=== PATIENT | male | born 1950 | race African-American/Black ===

== ENCOUNTER 2024-08-25 10:45 | Inpatient (IN) | payer MEDICAID ==
[2024-08-25] VITALS (44 sets, daily range): BP systolic 88–154; BP diastolic 45–80; PULSE 42–59; RESP 9–17; TEMP 36.44736–36.5292; O2SAT 95–100
[~2024-08-25] VITALS: Ht 177.8 cm; Wt 81.2 kg
[2024-08-25] MEDS: IOHEXOL-350 100 ML BOTTLE ONE (11:35)
[2024-08-25] MEDS: SODIUM CHLORIDE 0.9% 1,000 ML IV ONE (11:35)
[2024-08-25 11:43] LABS: BASOPHILS % 0.2 % (0.0-2.0); EOSINOPHILS % 2.8 % (0.0-5.0); HEMATOCRIT. 37.9 % (42.0-52.0); LYMPHOCYTES % 24.6 % (20.0-50.0); MEAN CORPUSCULAR HEMOGLOBIN 30.5 pg (28.0-32.0); MEAN CORPUSCULAR HGB CONC 34.3 g/dL (31.0-37.0); MEAN CORPUSCULAR VOLUME 88.9 fL (80.0-94.0); MEAN PLATELET VOLUME 7.9 fl (7.4-10.4); MONOCYTES % 7.5 % (2.0-8.0); NEUTROPHILS % 64.9 % (40.0-76.0); PLATELET 152 x1000/uL (130-400); RED BLOOD CELL COUNT 4.27 mill/uL (4.7-6.1); RED CELL DISTRIBUTION WIDTH 15.1 % (11.6-14.6); WHITE BLOOD COUNT 4.7 x1000/uL (4.5-11.0)
[2024-08-25] MEDS: DEXAMETHASONE 10 MG/ML VIAL IV ONE (11:43)
[2024-08-25] MEDS: LEVETIRACETAM 500MG PREMIX 100 ML IV ONE (11:43)
[2024-08-25 11:51] LABS: CHLORIDE 106 mEq/L (98-107); POTASSIUM 3.2 mEq/L (3.5-5.1); SODIUM 139 mEq/L (136-145)
[2024-08-25 11:52] LABS: CALCIUM 8.6 mg/dL (8.7-10.4); CARBON DIOXIDE 29 mEq/L (21-32)
[2024-08-25 11:56] LABS: INR 1.1; PROTHROMBIN TIME 11.8 sec (9.6-11.0)
[2024-08-25 11:57] LABS: CREATININE 0.7 mg/dL (0.6-1.3); GLUCOSE 99 mg/dL (70-105)
[2024-08-25] MEDS: MANNITOL 20% 250 ML IV ONE (11:57)
[2024-08-25 11:58] LABS: TROPONIN I HIGH SENSITIVITY 4 ng/L (3.0-53); UREA NITROGEN BLOOD 11 mg/dL (9-23)
[2024-08-25 11:59] LABS: ALANINE AMINOTRANSFERASE 20 IU/L (10-49); ALBUMIN 3.6 g/dL (3.2-4.8); ASPARTATE AMINOTRANSFERASE 21 IU/L (<34); BILIRUBIN DIRECT 0.5 mg/dL (<=3.0)
[2024-08-25 12:00] LABS: BILIRUBIN TOTAL 1.5 mg/dL (0.1-1.0); PROTEIN TOTAL 6.2 g/dL (6.0-8.3)
[2024-08-25] MEDS ORDERED: NICARDIPINE 100 MG in SODIUM CHLORIDE 0.9% 60 ML IV PRN (12:00)
[2024-08-25 12:03] LABS: ETHANOL BLOOD < 10 mg/dL (<10)
[2024-08-25] MEDS ORDERED: SODIUM CHLORIDE 0.9% IV NR (13:00)
[2024-08-25] MEDS ORDERED: DESMOPRESSIN ACETATE IV NR (13:00)
[2024-08-25] MEDS ORDERED: THROMBIN (BOVINE) 5000 UNITS/VIAL TOP ONE (13:03)
[2024-08-25] MEDS ORDERED: BACITRACIN 14GM TUBE TOP ONE (13:04)
[2024-08-25] MEDS ORDERED: GENTAMICIN SULF 40MG/ML 2ML VIAL ONE (13:04)
[2024-08-25] MEDS ORDERED: LIDOCAINE HCL/EPINEPHRINE 1%-EPI 1:100,000 20ML VIAL ONE (13:04)
[2024-08-25 14:00] LABS: CLARITY URINE CLEAR (CLEAR); COLOR URINE YELLOW (YELLOW); GLUCOSE URINE NEGATIVE (NEGATIVE); KETONES URINE NEGATIVE (NEGATIVE); LEUKOCYTE ESTERASE URINE NEGATIVE (NEGATIVE); NITRITE URINE NEGATIVE (NEGATIVE); OCCULT BLOOD URINE NEGATIVE (NEGATIVE); PROTEIN URINE NEGATIVE (NEGATIVE); SPECIFIC GRAVITY URINE 1.043 (1.005-1.030)
[2024-08-25 14:08] LABS: *AMPHETAMINES SCREEN URINE NEGATIVE (NEGATIVE); *BARBITURATES SCREEN URINE NEGATIVE (NEGATIVE); *BENZODIAZEPINES SCREEN URINE NEGATIVE (NEGATIVE); *COCAINE SCREEN URINE NEGATIVE (NEGATIVE); CANNABINOID URINE SCREEN NEGATIVE (NEGATIVE); ECSTASY MDMA SCREEN URINE NEGATIVE (NEGATIVE); METHADONE URINE SCREEN NEGATIVE (NEGATIVE); OPIATES URINE SCREEN NEGATIVE (NEGATIVE); PHENCYCLIDINE URINE SCREEN NEGATIVE (NEGATIVE)
[2024-08-25 15:04] LABS: TROPONIN I HIGH SENSITIVITY 4 ng/L (3.0-53)
[2024-08-25] MEDS: NICARDIPINE 100 MG in SODIUM CHLORIDE 0.9% 60 ML IV PRN (15:20)
[2024-08-25] MEDS ORDERED: DEXTROSE 50% WATER 50ML SYRINGE IV PRN (19:30)
[2024-08-25] MEDS: DEXT 5%/LACTATED RINGERS 1,000 ML IV SCH (19:36)
[2024-08-25] MEDS: LEVETIRACETAM 500MG PREMIX 100 ML IV SCH (20:53)
[2024-08-25] MEDS ORDERED: LEVETIRACETAM 500MG in NACL 100ML PREMIX IV SCH (21:00)
[2024-08-25] MEDS: INSULIN LISPRO 100 UNITS/ML SUBCUT SCH (21:00)
[2024-08-25] MEDS: BLOOD SUGAR DIAGNOSTIC STRIP TEST SCH (21:33)
[2024-08-25] MEDS: DEXAMETHASONE 4MG/ML 1ML VIAL IV SCH (23:52)
[2024-08-26] VITALS (81 sets, daily range): BP systolic 92–148; BP diastolic 54–91; PULSE 40–59; RESP 8–24; TEMP 35.61396–36.78072; O2SAT 95–100
[2024-08-26 05:50] LABS: BASOPHILS % 0.2 % (0.0-2.0); HEMATOCRIT. 40.9 % (42.0-52.0); HEMOGLOBIN. 13.8 g/dL (14.0-18.0); LYMPHOCYTES % 20.3 % (20.0-50.0); MEAN CORPUSCULAR HEMOGLOBIN 30.4 pg (28.0-32.0); MEAN CORPUSCULAR HGB CONC 33.8 g/dL (31.0-37.0); MEAN PLATELET VOLUME 8.6 fl (7.4-10.4); MONOCYTES % 1.6 % (2.0-8.0); NEUTROPHILS % 77.9 % (40.0-76.0); PLATELET 158 x1000/uL (130-400); RED BLOOD CELL COUNT 4.55 mill/uL (4.7-6.1); RED CELL DISTRIBUTION WIDTH 14.8 % (11.6-14.6); WHITE BLOOD COUNT 4.5 x1000/uL (4.5-11.0)
[2024-08-26 06:08] LABS: CALCIUM 9.1 mg/dL (8.7-10.4); CHLORIDE 107 mEq/L (98-107); POTASSIUM 3.5 mEq/L (3.5-5.1); SODIUM 141 mEq/L (136-145)
[2024-08-26 06:09] LABS: CARBON DIOXIDE 27 mEq/L (21-32)
[2024-08-26 06:14] LABS: CREATININE 0.6 mg/dL (0.6-1.3); GLUCOSE 138 mg/dL (70-105); UREA NITROGEN BLOOD 12 mg/dL (9-23)
[2024-08-26] MEDS ORDERED: IPRATROPIUM/ALBUTEROL 0.5-3(2.5)MG/3ML NEB HHN PRN (07:00)
[2024-08-26 08:58] LABS: THYROID STIMULATING HORMONE 0.55 uIU/mL (0.55-4.78)
[2024-08-26] MEDS ORDERED: PHENYLEPHRINE 50MG/250ML PMX 250 ML IV ONE (13:22)
[2024-08-26] MEDS ORDERED: NALOXONE HCL 0.4MG/ML VIAL IV PRN (14:00)
[2024-08-26] MEDS ORDERED: CEFAZOLIN SODIUM 1000MG/VIAL IV SCH (14:00)
[2024-08-26] MEDS ORDERED: FENTANYL CITRATE/PF 50MCG/ML 2ML VIAL ONE (14:01)
[2024-08-26] MEDS ORDERED: ROCURONIUM BROMIDE 10MG/ML VIAL 5ML IV ONE (14:02)
[2024-08-26] MEDS ORDERED: HYDROMORPHONE HCL/PF 1MG/ML INJ ONE (14:02)
[2024-08-26] MEDS ORDERED: PHENYTOIN SODIUM 100MG/2ML VIAL IV ONE ×2 (14:42→14:43)
[2024-08-26] MEDS ORDERED: SUGAMMADEX SODIUM 200MG/2ML VIAL IV ONE (15:02)
[2024-08-26] MEDS: CEFAZOLIN 1000MG PREMIX 50ML IV SCH (17:25)
[2024-08-26] MEDS: MORPHINE SULFATE 4 MG/ML INJ (FOR IV/IM USE) IV PRN (17:26)
[2024-08-26] MEDS: ONDANSETRON HCL 4MG/2ML INJ IV PRN (19:36)
[2024-08-26] MEDS: PHENYTOIN SODIUM 100MG/2ML VIAL IV SCH (21:34)
[2024-08-27] VITALS (70 sets, daily range): BP systolic 94–152; BP diastolic 61–86; PULSE 41–73; RESP 0–18; TEMP 36.50292–36.9474; O2SAT 74–100
[2024-08-27 05:29] LABS: HEMATOCRIT. 38.5 % (42.0-52.0); HEMOGLOBIN. 13.2 g/dL (14.0-18.0); LYMPHOCYTES % 9.2 % (20.0-50.0); MEAN CORPUSCULAR HEMOGLOBIN 30.6 pg (28.0-32.0); MEAN CORPUSCULAR HGB CONC 34.2 g/dL (31.0-37.0); MEAN CORPUSCULAR VOLUME 89.4 fL (80.0-94.0); MEAN PLATELET VOLUME 8.7 fl (7.4-10.4); MONOCYTES % 4.9 % (2.0-8.0); NEUTROPHILS % 85.9 % (40.0-76.0); PLATELET 169 x1000/uL (130-400); RED BLOOD CELL COUNT 4.31 mill/uL (4.7-6.1); RED CELL DISTRIBUTION WIDTH 15.1 % (11.6-14.6); WHITE BLOOD COUNT 12.6 x1000/uL (4.5-11.0)
[2024-08-27 05:36] LABS: CHLORIDE 108 mEq/L (98-107); POTASSIUM 3.7 mEq/L (3.5-5.1); SODIUM 142 mEq/L (136-145)
[2024-08-27 05:37] LABS: CARBON DIOXIDE 28 mEq/L (21-32)
[2024-08-27 05:41] LABS: PROTHROMBIN TIME 10.9 sec (9.6-11.0)
[2024-08-27 05:42] LABS: CREATININE 0.6 mg/dL (0.6-1.3); GLUCOSE 129 mg/dL (70-105); TRIGLYCERIDE 51 mg/dL (0-150); UREA NITROGEN BLOOD 23 mg/dL (9-23)
[2024-08-27 05:43] LABS: ALBUMIN 3.8 g/dL (3.2-4.8); LDL CHOLESTEROL 57 mg/dL (5-100); PROTEIN TOTAL 6.4 g/dL (6.0-8.3)
[2024-08-27 05:44] LABS: ALANINE AMINOTRANSFERASE 16 IU/L (10-49); ASPARTATE AMINOTRANSFERASE 15 IU/L (<34); BILIRUBIN DIRECT 0.4 mg/dL (<=3.0); BILIRUBIN TOTAL 1.1 mg/dL (0.1-1.0); CHOLESTEROL 112 mg/dL (<200); HDL CHOLESTEROL 40 mg/dL (>55)
[2024-08-27] MEDS: PANTOPRAZOLE SODIUM 40 MG/VIAL IV SCH (09:11)
[2024-08-28] VITALS (81 sets, daily range): BP systolic 97–151; BP diastolic 60–90; PULSE 51–93; RESP 5–23; TEMP 36.55848–37.11408; O2SAT 92–100
[2024-08-28 06:38] LABS: CHLORIDE 105 mEq/L (98-107); POTASSIUM 3.5 mEq/L (3.5-5.1); SODIUM 139 mEq/L (136-145)
[2024-08-28 06:39] LABS: CARBON DIOXIDE 30 mEq/L (21-32)
[2024-08-28 06:40] LABS: CALCIUM 8.4 mg/dL (8.7-10.4)
[2024-08-28 06:44] LABS: BASOPHILS % 0.1 % (0.0-2.0); CREATININE 0.6 mg/dL (0.6-1.3); EOSINOPHILS % 1.9 % (0.0-5.0); GLUCOSE 140 mg/dL (70-105); HEMATOCRIT. 38.8 % (42.0-52.0); HEMOGLOBIN. 13.3 g/dL (14.0-18.0); LYMPHOCYTES % 18.1 % (20.0-50.0); MEAN CORPUSCULAR HGB CONC 34.2 g/dL (31.0-37.0); MEAN CORPUSCULAR VOLUME 90.8 fL (80.0-94.0); MEAN PLATELET VOLUME 8.8 fl (7.4-10.4); MONOCYTES % 11.3 % (2.0-8.0); NEUTROPHILS % 68.6 % (40.0-76.0); PLATELET 136 x1000/uL (130-400); RED BLOOD CELL COUNT 4.27 mill/uL (4.7-6.1); RED CELL DISTRIBUTION WIDTH 15.2 % (11.6-14.6); UREA NITROGEN BLOOD 19 mg/dL (9-23)
[2024-08-28] MEDS: GADOTERATE MEGLUMINE 5 MMOL/10 ML VIAL IV ONE (09:11)
[2024-08-28] MEDS: HYDRALAZINE 20MG/ML VIAL IV PRN (17:53)
[2024-08-29] VITALS (106 sets, daily range): BP systolic 64–155; BP diastolic 50–101; PULSE 57–124; RESP 12–36; TEMP 36.50292–37.16964; O2SAT 90–100
[2024-08-29 05:12] LABS: CHLORIDE 105 mEq/L (98-107); POTASSIUM 3.1 mEq/L (3.5-5.1); SODIUM 136 mEq/L (136-145)
[2024-08-29 05:13] LABS: CARBON DIOXIDE 26 mEq/L (21-32)
[2024-08-29 05:14] LABS: CALCIUM 8.6 mg/dL (8.7-10.4)
[2024-08-29 05:18] LABS: GLUCOSE 124 mg/dL (70-105)
[2024-08-29 05:19] LABS: BASOPHILS % 0.4 % (0.0-2.0); EOSINOPHILS % 0.8 % (0.0-5.0); HEMATOCRIT. 39.7 % (42.0-52.0); HEMOGLOBIN. 13.6 g/dL (14.0-18.0); LYMPHOCYTES % 11.1 % (20.0-50.0); MEAN CORPUSCULAR HEMOGLOBIN 30.7 pg (28.0-32.0); MEAN CORPUSCULAR HGB CONC 34.3 g/dL (31.0-37.0); MEAN CORPUSCULAR VOLUME 89.3 fL (80.0-94.0); MEAN PLATELET VOLUME 8.4 fl (7.4-10.4); NEUTROPHILS % 79.7 % (40.0-76.0); PLATELET 149 x1000/uL (130-400); RED BLOOD CELL COUNT 4.45 mill/uL (4.7-6.1); RED CELL DISTRIBUTION WIDTH 14.8 % (11.6-14.6); UREA NITROGEN BLOOD 13 mg/dL (9-23); WHITE BLOOD COUNT 7.1 x1000/uL (4.5-11.0)
[2024-08-29 05:20] LABS: CREATININE 0.4 mg/dL (0.6-1.3)
[2024-08-29] MEDS: KCL 20MEQ/100ML PREMIX 100 ML IV SCH (08:03)
[2024-08-29] MEDS ORDERED: THROMBIN (BOVINE) 5000 UNITS/VIAL TOP ONE ×2 (10:03→12:24)
[2024-08-29] MEDS ORDERED: LIDOCAINE HCL/EPINEPHRINE 1%-EPI 1:100,000 20ML VIAL ONE (10:03)
[2024-08-29] MEDS ORDERED: GENTAMICIN SULF 40MG/ML 2ML VIAL ONE (10:03)
[2024-08-29] MEDS ORDERED: BACITRACIN 14GM TUBE TOP ONE (10:04)
[2024-08-29] MEDS ORDERED: SUCCINYLCHOLINE CHLORIDE 200MG/10ML IV ONE (11:22)
[2024-08-29] MEDS ORDERED: ETOMIDATE 2MG/ML 10ML VIAL IV ONE (11:22)
[2024-08-29] MEDS ORDERED: ROCURONIUM BROMIDE 10MG/ML VIAL 5ML IV ONE (11:22)
[2024-08-29] MEDS ORDERED: CEFAZOLIN SODIUM 1000MG/VIAL ONE (11:22)
[2024-08-29] MEDS ORDERED: DEXAMETHASONE 4MG/ML 1ML VIAL ONE (11:22)
[2024-08-29] MEDS ORDERED: FENTANYL CITRATE/PF 50MCG/ML 5ML VIAL ONE (11:23)
[2024-08-29] MEDS ORDERED: MIDAZOLAM HCL 2 MG/2 ML VIAL ONE (11:23)
[2024-08-29] MEDS ORDERED: PROPOFOL 200MG/20ML VIAL IV ONE (11:23)
[2024-08-29] MEDS ORDERED: SUGAMMADEX SODIUM 200MG/2ML VIAL IV ONE (12:43)
[2024-08-29] MEDS ORDERED: NEOSTIGMINE METHYLSULFATE 1MG/ML 10 ML VIAL ONE (12:45)
[2024-08-29] MEDS ORDERED: GLYCOPYRROLATE 0.2 MG/ML 2ML VIAL ONE (12:45)
[2024-08-29] MEDS ORDERED: CEFAZOLIN SODIUM 1000MG/VIAL IV SCH (14:00)
[2024-08-29] MEDS: PHENYTOIN SODIUM 500 MG in SODIUM CHLORIDE 0.9% 50 ML IV NR (19:01)
[2024-08-29] MEDS: DIAZEPAM 5 MG/ML 2ML SYR IV NR (19:28)
[2024-08-29] MEDS: NOREPINEPHRINE 8MG/250ML PMX 250 ML IV PRN (19:43)
[2024-08-29] MEDS: LEVETIRACETAM 500MG PREMIX 100 ML IV NR ×2 (20:25→20:26)
[2024-08-29] MEDS: CEFAZOLIN 1000MG PREMIX 50ML IV SCH (20:26)
[2024-08-29] MEDS: PROPOFOL 10MG/ML 100ML 100 ML IV PRN (20:57)
[2024-08-29 21:28] LABS: BG BASE EXCESS -3.1 mmol/L (-2.0-3.0); BG CARBOXYHEMOGLOBIN 0.1 % (0.5-1.5); BG DEOXYHEMOGLOBIN 0.1 % (0.0-5.0); BG FRACTION INSPIRED OXYGEN 100; BG HCO3 ACT 20.7 mmol/L (21.0-28.0); BG METHEMOGLOBIN 0.1 % (0.5-1.5); BG OXYGEN SATURATION 99.9 % (94.0-98.0); BG OXYHEMOGLOBIN 99.7 % (94.0-98.0); BG PCO2 33.4 mmHg (35.0-48.0); BG PO2 326.6 mmHg (83.0-108.0); BG SAMPLE SITE ALINE; BG TOTAL HEMOGLOBIN 13.8 g/dL (13.5-17.5); BG VENT MODE VENT - AC
[2024-08-30] VITALS (106 sets, daily range): BP systolic 79–158; BP diastolic 52–99; PULSE 55–77; RESP 9–23; TEMP 36.61404–37.28076; O2SAT 98–100
[2024-08-30 05:42] LABS: CARBON DIOXIDE 25 mEq/L (21-32); CHLORIDE 105 mEq/L (98-107); POTASSIUM 3.5 mEq/L (3.5-5.1); SODIUM 137 mEq/L (136-145)
[2024-08-30 05:43] LABS: CALCIUM 8.5 mg/dL (8.7-10.4)
[2024-08-30 05:46] LABS: TRIGLYCERIDE 74 mg/dL (0-150)
[2024-08-30 05:47] LABS: CREATININE 0.6 mg/dL (0.6-1.3); UREA NITROGEN BLOOD 20 mg/dL (9-23)
[2024-08-30 05:48] LABS: GLUCOSE 131 mg/dL (70-105)
[2024-08-30 05:49] LABS: ALANINE AMINOTRANSFERASE 15 IU/L (10-49); ALBUMIN 3.4 g/dL (3.2-4.8); ASPARTATE AMINOTRANSFERASE 16 IU/L (<34)
[2024-08-30 05:50] LABS: BILIRUBIN DIRECT 0.4 mg/dL (<=3.0); BILIRUBIN TOTAL 1.1 mg/dL (0.1-1.0); PHOSPHORUS 3.2 mg/dL (2.5-4.9); PROTEIN TOTAL 6.1 g/dL (6.0-8.3)
[2024-08-30 05:52] LABS: BASOPHILS % 0.2 % (0.0-2.0); EOSINOPHILS % 0.5 % (0.0-5.0); HEMATOCRIT. 37.3 % (42.0-52.0); HEMOGLOBIN. 12.9 g/dL (14.0-18.0); LYMPHOCYTES % 10.8 % (20.0-50.0); MEAN CORPUSCULAR HEMOGLOBIN 30.7 pg (28.0-32.0); MEAN CORPUSCULAR HGB CONC 34.5 g/dL (31.0-37.0); MEAN CORPUSCULAR VOLUME 89.1 fL (80.0-94.0); MEAN PLATELET VOLUME 8.8 fl (7.4-10.4); MONOCYTES % 7.9 % (2.0-8.0); NEUTROPHILS % 80.6 % (40.0-76.0); PLATELET 162 x1000/uL (130-400); RED BLOOD CELL COUNT 4.19 mill/uL (4.7-6.1); WHITE BLOOD COUNT 8.5 x1000/uL (4.5-11.0)
[2024-08-30 06:22] LABS: PROTHROMBIN TIME 10.8 sec (9.6-11.0)
[2024-08-30] MEDS: LEVETIRACETAM 1000MG PREMIX 100 ML IV SCH (09:18)
[2024-08-30 09:59] LABS: BG BASE EXCESS 0.5 mmol/L (-2.0-3.0); BG CARBOXYHEMOGLOBIN 0.4 % (0.5-1.5); BG DEOXYHEMOGLOBIN 0.7 % (0.0-5.0); BG FRACTION INSPIRED OXYGEN 40; BG HCO3 ACT 24.2 mmol/L (21.0-28.0); BG OXYGEN SATURATION 99.3 % (94.0-98.0); BG OXYHEMOGLOBIN 98.9 % (94.0-98.0); BG PH 7.446 (7.350-7.450); BG PO2 169.7 mmHg (83.0-108.0); BG SAMPLE SITE LEFT RADIAL; BG TOTAL HEMOGLOBIN 13.1 g/dL (13.5-17.5); BG VENT MODE VENT - AC
[2024-08-31] VITALS (107 sets, daily range): BP systolic 85–149; BP diastolic 58–82; PULSE 60–84; RESP 8–24; TEMP 36.6696–37.05852; O2SAT 92–100
[2024-08-31 06:37] LABS: CHLORIDE 108 mEq/L (98-107); POTASSIUM 3.3 mEq/L (3.5-5.1); SODIUM 139 mEq/L (136-145)
[2024-08-31 06:38] LABS: CARBON DIOXIDE 27 mEq/L (21-32)
[2024-08-31 06:39] LABS: CALCIUM 8.1 mg/dL (8.7-10.4)
[2024-08-31 06:43] LABS: CREATININE 0.5 mg/dL (0.6-1.3); GLUCOSE 111 mg/dL (70-105)
[2024-08-31 06:44] LABS: UREA NITROGEN BLOOD 23 mg/dL (9-23)
[2024-08-31 08:35] LABS: BASOPHILS % 0.2 % (0.0-2.0); EOSINOPHILS % 2.2 % (0.0-5.0); HEMATOCRIT. 38.9 % (42.0-52.0); HEMOGLOBIN. 12.8 g/dL (14.0-18.0); LYMPHOCYTES % 18.3 % (20.0-50.0); MEAN CORPUSCULAR HEMOGLOBIN 29.8 pg (28.0-32.0); MEAN CORPUSCULAR HGB CONC 32.8 g/dL (31.0-37.0); MEAN CORPUSCULAR VOLUME 90.9 fL (80.0-94.0); MEAN PLATELET VOLUME 8.2 fl (7.4-10.4); MONOCYTES % 10.8 % (2.0-8.0); NEUTROPHILS % 68.5 % (40.0-76.0); PLATELET 155 x1000/uL (130-400); RED BLOOD CELL COUNT 4.28 mill/uL (4.7-6.1); RED CELL DISTRIBUTION WIDTH 15.4 % (11.6-14.6); WHITE BLOOD COUNT 9.1 x1000/uL (4.5-11.0)
[2024-08-31] MEDS: KCL 20MEQ/100ML PREMIX 100 ML IV NR (10:46)
[2024-08-31 13:29] LABS: BG BASE EXCESS -0.6 mmol/L (-2.0-3.0); BG CARBOXYHEMOGLOBIN 0.3 % (0.5-1.5); BG DEOXYHEMOGLOBIN 0.7 % (0.0-5.0); BG FRACTION INSPIRED OXYGEN 40; BG METHEMOGLOBIN 0.3 % (0.5-1.5); BG OXYGEN SATURATION 99.3 % (94.0-98.0); BG OXYHEMOGLOBIN 98.7 % (94.0-98.0); BG PCO2 34.6 mmHg (35.0-48.0); BG PH 7.441 (7.350-7.450); BG PO2 187.8 mmHg (83.0-108.0); BG SAMPLE SITE RIGHT RADIAL; BG TOTAL HEMOGLOBIN 13.1 g/dL (13.5-17.5); BG VENT MODE MASK - CPAP
[2024-08-31 17:23] LABS: BG CARBOXYHEMOGLOBIN 0.3 % (0.5-1.5); BG DEOXYHEMOGLOBIN 0.9 % (0.0-5.0); BG FRACTION INSPIRED OXYGEN 40; BG HCO3 ACT 25.1 mmol/L (21.0-28.0); BG METHEMOGLOBIN 0.3 % (0.5-1.5); BG OXYGEN SATURATION 99.1 % (94.0-98.0); BG OXYHEMOGLOBIN 98.5 % (94.0-98.0); BG PCO2 38.1 mmHg (35.0-48.0); BG PH 7.436 (7.350-7.450); BG PO2 155.2 mmHg (83.0-108.0); BG SAMPLE SITE RIGHT RADIAL; BG VENT MODE VENT - CPAP
[2024-08-31] MEDS ORDERED: RACEPINEPHRINE 2.25% 0.5ML NEB VIAL HHN NR (17:35)
[2024-09-01] VITALS (95 sets, daily range): BP systolic 104–153; BP diastolic 57–81; PULSE 63–103; RESP 9–25; TEMP 36.78072–37.61412; O2SAT 93–100
[2024-09-01 06:10] LABS: CHLORIDE 109 mEq/L (98-107); POTASSIUM 3.2 mEq/L (3.5-5.1); SODIUM 142 mEq/L (136-145)
[2024-09-01 06:11] LABS: CALCIUM 8.4 mg/dL (8.7-10.4); CARBON DIOXIDE 28 mEq/L (21-32)
[2024-09-01 06:16] LABS: CREATININE 0.4 mg/dL (0.6-1.3); GLUCOSE 107 mg/dL (70-105); UREA NITROGEN BLOOD 24 mg/dL (9-23)
[2024-09-01 06:19] LABS: BASOPHILS % 0.2 % (0.0-2.0); HEMATOCRIT. 36.3 % (42.0-52.0); HEMOGLOBIN. 12.3 g/dL (14.0-18.0); LYMPHOCYTES % 17.7 % (20.0-50.0); MEAN CORPUSCULAR HEMOGLOBIN 30.4 pg (28.0-32.0); MEAN CORPUSCULAR HGB CONC 33.8 g/dL (31.0-37.0); MEAN PLATELET VOLUME 7.9 fl (7.4-10.4); MONOCYTES % 10.5 % (2.0-8.0); NEUTROPHILS % 68.6 % (40.0-76.0); PLATELET 154 x1000/uL (130-400); RED BLOOD CELL COUNT 4.03 mill/uL (4.7-6.1); WHITE BLOOD COUNT 7.6 x1000/uL (4.5-11.0)
[2024-09-01] MEDS: KCL 20MEQ/100ML PREMIX 100 ML IV NR (12:47)
[2024-09-01] MEDS: AMLODIPINE 10MG TABLET PO SCH (23:22)
[2024-09-01] MEDS: HYDRALAZINE HCL 50MG TABLET PO SCH (23:22)
[2024-09-02] VITALS (76 sets, daily range): BP systolic 111–140; BP diastolic 58–80; PULSE 66–92; RESP 13–23; TEMP 36.9474–37.28076; O2SAT 92–98
[2024-09-02] MEDS: LOSARTAN 50 MG TABLET PO SCH (10:08)
[2024-09-02] MEDS: POTASSIUM CHLORIDE 20MEQ/PACKET PO NR (10:09)
[2024-09-02 10:47] LABS: BASOPHILS % 0.1 % (0.0-2.0); EOSINOPHILS % 0.8 % (0.0-5.0); HEMOGLOBIN. 12.2 g/dL (14.0-18.0); LYMPHOCYTES % 8.5 % (20.0-50.0); MEAN CORPUSCULAR HEMOGLOBIN 29.8 pg (28.0-32.0); MEAN CORPUSCULAR VOLUME 90.3 fL (80.0-94.0); MEAN PLATELET VOLUME 7.7 fl (7.4-10.4); MONOCYTES % 6.4 % (2.0-8.0); NEUTROPHILS % 84.2 % (40.0-76.0); PLATELET 172 x1000/uL (130-400); RED CELL DISTRIBUTION WIDTH 15.1 % (11.6-14.6)
[2024-09-02 10:48] LABS: CHLORIDE 107 mEq/L (98-107); POTASSIUM 3.3 mEq/L (3.5-5.1); SODIUM 139 mEq/L (136-145)
[2024-09-02 10:49] LABS: CALCIUM 8.3 mg/dL (8.7-10.4); CARBON DIOXIDE 24 mEq/L (21-32)
[2024-09-02 10:54] LABS: CREATININE 0.5 mg/dL (0.6-1.3); GLUCOSE 134 mg/dL (70-105); UREA NITROGEN BLOOD 25 mg/dL (9-23)
[2024-09-02] MEDS ORDERED: DEXMEDETOMIDINE 400 MCG/100 ML 100 ML IV PRN (12:45)
[2024-09-03] VITALS (60 sets, daily range): BP systolic 120–159; BP diastolic 57–108; PULSE 67–91; RESP 13–27; TEMP 36.6696–37.83636; O2SAT 88–97
[2024-09-03] MEDS: ACETAMINOPHEN 325MG TABLET PO PRN (20:56)
[2024-09-04] VITALS (12 sets, daily range): BP systolic 110–141; BP diastolic 61–81; PULSE 62–89; RESP 12–20; TEMP 36.16956–36.9474; O2SAT 95–99
[2024-09-04] MEDS: ACETAMINOPHEN 325MG TABLET PO PRN (05:52)
[2024-09-04] MEDS: POTASSIUM CHLORIDE 20MEQ TABLET SR PO NR (11:30)
[2024-09-05] VITALS (12 sets, daily range): BP systolic 104–135; BP diastolic 62–77; PULSE 64–85; RESP 12–18; TEMP 36.50292–37.2252; O2SAT 95–98
[2024-09-06] VITALS (11 sets, daily range): BP systolic 114–137; BP diastolic 64–82; PULSE 63–89; RESP 8–19; TEMP 36.89184–37.503; O2SAT 93–98
[2024-09-06 07:51] LABS: BASOPHILS % 0.2 % (0.0-2.0); EOSINOPHILS % 3.2 % (0.0-5.0); HEMATOCRIT. 33.2 % (42.0-52.0); HEMOGLOBIN. 11.2 g/dL (14.0-18.0); LYMPHOCYTES % 22.7 % (20.0-50.0); MEAN CORPUSCULAR HEMOGLOBIN 30.3 pg (28.0-32.0); MEAN CORPUSCULAR HGB CONC 33.7 g/dL (31.0-37.0); MEAN CORPUSCULAR VOLUME 89.9 fL (80.0-94.0); MEAN PLATELET VOLUME 7.6 fl (7.4-10.4); MONOCYTES % 7.6 % (2.0-8.0); NEUTROPHILS % 66.3 % (40.0-76.0); PLATELET 166 x1000/uL (130-400); RED BLOOD CELL COUNT 3.69 mill/uL (4.7-6.1); WHITE BLOOD COUNT 6.4 x1000/uL (4.5-11.0)
[2024-09-06 07:55] LABS: CALCIUM 8.1 mg/dL (8.7-10.4); CHLORIDE 101 mEq/L (98-107); SODIUM 133 mEq/L (136-145)
[2024-09-06 07:56] LABS: CARBON DIOXIDE 24 mEq/L (21-32)
[2024-09-06 08:01] LABS: CREATININE 0.4 mg/dL (0.6-1.3); GLUCOSE 94 mg/dL (70-105)
[2024-09-06 08:02] LABS: UREA NITROGEN BLOOD 8 mg/dL (9-23)
[2024-09-06 08:04] LABS: PHOSPHORUS 2.8 mg/dL (2.5-4.9)
[2024-09-06] MEDS: POTASSIUM CHLORIDE 20MEQ TABLET SR PO NR (21:38)
[2024-09-07] VITALS (7 sets, daily range): BP systolic 110–147; BP diastolic 48–75; PULSE 63–88; RESP 11–18; TEMP 36.55848–38.55864; O2SAT 98–100
[2024-09-07] MEDS: POTASSIUM CHLORIDE 20MEQ/PACKET PO SCH (14:33)
[2024-09-07 16:42] LABS: CHLORIDE 102 mEq/L (98-107); POTASSIUM 3.6 mEq/L (3.5-5.1); SODIUM 132 mEq/L (136-145)
[2024-09-07 16:43] LABS: CARBON DIOXIDE 25 mEq/L (21-32)
[2024-09-07 16:44] LABS: BASOPHILS % 0.4 % (0.0-2.0); CALCIUM 8.2 mg/dL (8.7-10.4); EOSINOPHILS % 2.7 % (0.0-5.0); HEMATOCRIT. 35.1 % (42.0-52.0); HEMOGLOBIN. 11.7 g/dL (14.0-18.0); LYMPHOCYTES % 17.8 % (20.0-50.0); MEAN CORPUSCULAR HEMOGLOBIN 30.1 pg (28.0-32.0); MEAN CORPUSCULAR HGB CONC 33.4 g/dL (31.0-37.0); MEAN CORPUSCULAR VOLUME 89.9 fL (80.0-94.0); MEAN PLATELET VOLUME 7.2 fl (7.4-10.4); MONOCYTES % 8.6 % (2.0-8.0); NEUTROPHILS % 70.5 % (40.0-76.0); PLATELET 198 x1000/uL (130-400); RED BLOOD CELL COUNT 3.91 mill/uL (4.7-6.1)
[2024-09-07 16:48] LABS: CREATININE 0.4 mg/dL (0.6-1.3)
[2024-09-07 16:49] LABS: GLUCOSE 113 mg/dL (70-105); UREA NITROGEN BLOOD 5 mg/dL (9-23)
[2024-09-08] VITALS (7 sets, daily range): BP systolic 113–131; BP diastolic 61–85; PULSE 68–81; RESP 11–19; TEMP 36.3918–37.28076; O2SAT 89–100
[2024-09-08] MEDS: LIDOCAINE HCL 1% 10 MG/ML 10ML VIAL ONE (16:04)
[2024-09-09] VITALS (7 sets, daily range): BP systolic 108–126; BP diastolic 57–78; PULSE 69–82; RESP 17–18; TEMP 36.55848–37.05852; O2SAT 99–100
[2024-09-09] MEDS: PHENYTOIN SODIUM EXTENDED 100MG CAPSULE PO SCH (21:40)
[2024-09-10] VITALS: BP 102/53; PULSE 62; RESP 18; TEMP 36.50292; O2SAT 98
[2024-09-10 04:00] VITALS: BP 107/58; PULSE 64; RESP 16; TEMP 36.89184; O2SAT 97
[2024-09-10 08:00] VITALS: BP 102/57; PULSE 83; RESP 18; TEMP 36.114; O2SAT 97
[2024-09-10] MEDS: LEVETIRACETAM 500MG TABLET PO SCH (09:03)
[2024-09-10 12:00] VITALS: BP 106/60; PULSE 85; RESP 18; TEMP 36.50292; O2SAT 98
[2024-09-10 16:00] VITALS: BP 101/58; PULSE 71; RESP 18; TEMP 36.44736; O2SAT 98
[2024-09-10 20:00] VITALS: BP 149/75; PULSE 74; RESP 20; TEMP 36.6696; O2SAT 98
[2024-09-11] VITALS: BP 103/55; PULSE 71; RESP 20; TEMP 36.3918; O2SAT 97
[2024-09-11 04:00] VITALS: BP 96/57; PULSE 78; RESP 20; TEMP 36.50292; O2SAT 97
[2024-09-11 08:00] VITALS: BP 105/63; PULSE 69; RESP 18; TEMP 36.44736; O2SAT 95
[2024-09-11 12:00] VITALS: BP 91/54; PULSE 74; RESP 18; TEMP 36.3918; O2SAT 96
[2024-09-11 16:00] VITALS: BP 110/65; PULSE 72; RESP 18; TEMP 36.44736; O2SAT 99
[2024-09-11 20:00] VITALS: BP 107/61; PULSE 84; RESP 19; TEMP 36.72516; O2SAT 96
[2024-09-12] VITALS: BP 117/64; PULSE 74; RESP 18; TEMP 36.78072; O2SAT 96
[2024-09-12 04:00] VITALS: BP 125/65; PULSE 74; RESP 19; TEMP 36.72516; O2SAT 100
[2024-09-12 08:00] VITALS: BP 131/76; PULSE 74; RESP 20; TEMP 36.44736; O2SAT 99
[2024-09-12 12:00] VITALS: BP 100/55; PULSE 75; RESP 18; TEMP 37.11408; O2SAT 98
[2024-09-12 16:00] VITALS: BP 117/65; PULSE 76; RESP 20; TEMP 36.6696; O2SAT 98
[2024-09-12 20:00] VITALS: BP 105/55; PULSE 78; RESP 18; TEMP 36.89184; O2SAT 99
[2024-09-13] VITALS: BP_SYST 105; BP_SYST 107; BP_DIAS 53; PULSE 72; RESP 19; TEMP 37.00296; O2SAT 97
[2024-09-13 08:00] VITALS: BP 115/71; PULSE 66; RESP 18; TEMP 36.50292; O2SAT 98
[2024-09-13 12:00] VITALS: BP 93/53; PULSE 64; RESP 18; TEMP 36.44736; O2SAT 99
[2024-09-13 16:00] VITALS: BP 102/59; PULSE 75; RESP 18; TEMP 36.44736; O2SAT 98
[2024-09-13 20:00] VITALS: BP 99/50; PULSE 82; RESP 19; TEMP 36.3918; O2SAT 96
[2024-09-14] VITALS: BP 108/58; PULSE 77; RESP 19; TEMP 36.44736; O2SAT 97
[2024-09-14 04:00] VITALS: BP 98/47; PULSE 61; RESP 20; TEMP 36.3918
[2024-09-14 08:00] VITALS: BP 111/69; PULSE 67; RESP 18; TEMP 36.61404; O2SAT 99
[2024-09-14 12:00] VITALS: BP 122/66; PULSE 71; RESP 18; TEMP 36.22512; O2SAT 96
[2024-09-14 16:00] VITALS: BP 109/59; PULSE 71; RESP 18; TEMP 36.72516; O2SAT 96
[2024-09-14] MEDS ORDERED: HYDRALAZINE 10 MG in SODIUM CHLORIDE 0.9% 49.5 ML IV PRN (16:30)
[2024-09-14 20:00] VITALS: BP 101/58; PULSE 82; RESP 20; TEMP 37.00296; O2SAT 100
[2024-09-15] VITALS: BP 108/60; PULSE 82; RESP 20; TEMP 36.83628; O2SAT 100
[2024-09-15 04:00] VITALS: BP 103/56; PULSE 73; RESP 20; TEMP 36.55848; O2SAT 99
[2024-09-15 08:00] VITALS: BP 141/77; PULSE 71; RESP 18; TEMP 36.44736; O2SAT 100
[2024-09-15 12:00] VITALS: BP 107/56; PULSE 80; RESP 16; TEMP 36.44736; O2SAT 97
[2024-09-15 16:00] VITALS: BP 99/52; PULSE 80; RESP 19; TEMP 36.78072; O2SAT 96
[2024-09-15] MEDS: DOCUSATE SODIUM 100MG CAPSULE PO PRN (16:51)
[2024-09-16] VITALS (7 sets, daily range): BP systolic 83–107; BP diastolic 48–58; PULSE 60–88; RESP 16–20; TEMP 36.33624–37.11408; O2SAT 96–100
[2024-09-17] VITALS: BP 99/57; PULSE 81; RESP 18; TEMP 37.00296; O2SAT 99
[2024-09-17 04:00] VITALS: BP 100/64; PULSE 78; RESP 18; TEMP 36.83628; O2SAT 99
[2024-09-17 08:00] VITALS: BP 106/62; PULSE 65; RESP 20; TEMP 36.22512; O2SAT 97
[2024-09-17 12:00] VITALS: BP 103/58; PULSE 66; RESP 19; TEMP 36.6696; O2SAT 99
[2024-09-17 16:00] VITALS: BP 104/57; PULSE 78; RESP 18; TEMP 36.33624; O2SAT 96
[2024-09-17 20:00] VITALS: BP 125/46; PULSE 83; RESP 19; TEMP 36.50292; O2SAT 100
[2024-09-18] VITALS: BP 104/56; PULSE 80; RESP 18; TEMP 36.44736; O2SAT 98
[2024-09-18 04:00] VITALS: BP 112/58; PULSE 74; RESP 19; TEMP 36.6696; O2SAT 97
[2024-09-18 08:00] VITALS: BP 116/70; PULSE 78; RESP 20; TEMP 36.3918; O2SAT 99
[2024-09-18 12:00] VITALS: BP 118/64; PULSE 77; RESP 20; TEMP 36.50292; O2SAT 98
[2024-09-18 16:00] VITALS: BP 102/69; PULSE 78; RESP 20; TEMP 36.28068; O2SAT 97
[2024-09-18 20:00] VITALS: BP 111/63; PULSE 79; RESP 18; TEMP 36.16956; O2SAT 95
[2024-09-19] VITALS: BP 109/60; PULSE 82; RESP 18; TEMP 36.78072; O2SAT 96
[2024-09-19 04:00] VITALS: BP 117/55; PULSE 89; RESP 18; TEMP 36.16956; O2SAT 95
[2024-09-19 08:00] VITALS: BP 110/71; PULSE 70; RESP 20; TEMP 36.3918; O2SAT 97
[2024-09-19 12:00] VITALS: BP 112/66; PULSE 71; RESP 18; TEMP 36.55848; O2SAT 98
[2024-09-19 16:19] VITALS: BP 100/57; PULSE 80; RESP 20; TEMP 36.33624; O2SAT 97
[2024-09-19 20:00] VITALS: BP 111/66; PULSE 80; RESP 18; TEMP 36.89184; O2SAT 100
[2024-09-20] VITALS: PULSE 78; RESP 18; TEMP 36.55848; O2SAT 96
[2024-09-20 04:00] VITALS: BP 118/67; PULSE 73; RESP 18; TEMP 37.11408; O2SAT 100
[2024-09-20 08:00] VITALS: BP 118/56; PULSE 86; RESP 20; TEMP 36.114; O2SAT 97
[2024-09-20 12:00] VITALS: BP 118/60; PULSE 81; RESP 19; TEMP 36.28068; O2SAT 100
[2024-09-20 16:00] VITALS: BP 96/51; PULSE 81; RESP 18; TEMP 36.44736; O2SAT 97
[2024-09-20 20:00] VITALS: BP 100/60; PULSE 82; RESP 18; TEMP 37.05852; O2SAT 97
[2024-09-21] VITALS: BP 113/65; PULSE 76; RESP 19; TEMP 37.39188; O2SAT 96
[2024-09-21 04:00] VITALS: BP 100/55; PULSE 71; RESP 20; TEMP 37.16964; O2SAT 98
[2024-09-21 08:00] VITALS: BP 111/71; PULSE 75; RESP 19; TEMP 36.89184; O2SAT 96
[2024-09-21 12:00] VITALS: BP 121/69; PULSE 71; RESP 19; TEMP 37.00296; O2SAT 100
[2024-09-21 16:00] VITALS: BP 103/53; PULSE 77; RESP 19; TEMP 36.44736; O2SAT 97
[2024-09-21 20:00] VITALS: BP 108/71; PULSE 83; RESP 20; TEMP 36.61404; O2SAT 97
[2024-09-22 04:00] VITALS: BP 105/70; PULSE 80; RESP 18; TEMP 36.6696; O2SAT 98
[2024-09-22 07:42] VITALS: BP 116/66; PULSE 67; RESP 18; TEMP 31.1136; O2SAT 100
[2024-09-22 12:00] VITALS: BP 116/66; PULSE 78; RESP 18; TEMP 35.5584; O2SAT 100
[2024-09-22 16:00] VITALS: BP 122/65; PULSE 77; RESP 18; TEMP 36.05844; O2SAT 98
[2024-09-22 20:00] VITALS: BP 179/91; PULSE 73; RESP 18; TEMP 36.00288; O2SAT 93
[2024-09-22 21:00] VITALS: BP 103/58
[2024-09-23] VITALS: BP 104/56; PULSE 18; RESP 18; TEMP 36.50292; O2SAT 95
[2024-09-23 04:00] VITALS: BP 129/60; PULSE 70; RESP 18; TEMP 36.50292; O2SAT 99
[2024-09-23 08:00] VITALS: BP 122/75; PULSE 85; RESP 18; TEMP 36.50292; O2SAT 100
[2024-09-23 09:01] VITALS: BP 122/75; PULSE 85; TEMP 97.7; O2SAT 100
== END 2024-09-23 12:52 | DRG 20 ==
LOC: ER 10:45 → MICUSO 12:20 → EDBEDREQSVC 12:26 → EDBEDREQ 12:26 → EDBEDREQTM 12:26 → 5EST 09-03 20:45 → 7EST 09-08 12:00 → 6WST 09-14 16:19
PROVIDERS: ADMIT Internal Medicine; ATTEND Internal Medicine
PROC: 00C40ZZ Extirpation of Matter from Intracranial Subdural Space, Open Approach (ICD-10-PCS; principal; 2024-08-26)
PROC: 00U207Z Supplement Dura Mater with Autologous Tissue Substitute, Open Approach (ICD-10-PCS; 2024-08-26)
PROC: 5A1945Z Respiratory Ventilation, 24-96 Consecutive Hours (ICD-10-PCS; 2024-08-29)
PROC: 0BH18EZ Insertion of Endotracheal Airway into Trachea, Via Natural or Artificial Opening Endoscopic (ICD-10-PCS; 2024-08-29)
PROC: 00C40ZZ Extirpation of Matter from Intracranial Subdural Space, Open Approach (ICD-10-PCS; 2024-08-29)
PROC: 00U207Z Supplement Dura Mater with Autologous Tissue Substitute, Open Approach (ICD-10-PCS; 2024-08-29)
PROC: 02HV33Z Insertion of Infusion Device into Superior Vena Cava, Percutaneous Approach (ICD-10-PCS; 2024-08-31)
PROC: B548ZZA Ultrasonography of Superior Vena Cava, Guidance (ICD-10-PCS; 2024-08-31)
DX: S06.5XAA Traumatic subdural hemorrhage with loss of consciousness status unknown, initial encounter (principal); J96.01 Acute respiratory failure with hypoxia; G93.41 Metabolic encephalopathy; E11.9 Type 2 diabetes mellitus without complications; F11.10 Opioid abuse, uncomplicated; I10 Essential (primary) hypertension; I16.0 Hypertensive urgency; G81.91 Hemiplegia, unspecified affecting right dominant side; Z79.82 Long term (current) use of aspirin; W18.39XA Other fall on same level, initial encounter; Y93.89 Activity, other specified; Y92.89 Other specified places as the place of occurrence of the external cause; Y99.8 Other external cause status
CPT/HCPCS: 31500; 36415; 36573; 36600; 70496; 70498; 70553; 71045; 80048; 80061; 80076; 80185; 80305; 80320; 81003; 82375; 82550; 82805; 82962; 83036; 83735; 83880; 84100; 84145; 84439; 84443; 84478; 84484; 85025; 86850; 86900; 88304; 92610; 93005; 93970; 94003; 97110; 97116; 97163; 97166; 97530; 97535; 99291; A6261; A9577; C1725; J0330; J0360; J0690; J1100; J1165; J1171; J1580; J1815; J1953; J2250; J2270; J2405; J2470; J2597; J2704; J2710; J3010; J3480; J3490; J7030; J7050; J7121; Q9967; C1713; G0480